=== PATIENT | male | born 1965 | race Caucasian/White ===

== ENCOUNTER 2021-03-16 17:29 | Emergency (ER) | payer OTHER ==
[~2021-03-16] VITALS: Ht 172.7 cm; Wt 71.7 kg
[~2021-03-16 17:29] MED LIST: ACETAMINOPHEN-1 EAC1 PO; BACTRIM DS TAB1 EACH PO; CEPHALEXIN 500500 M3 PO; ERYTHROMYCIN E3.5 G3 OPHTHALMIC; HYDROCODONE-AP1 EAC6 PO; NOHOMEMEDICATIONS; NORCO 5-325 TA1 EACH PO; PERCOCET 5-3251 EACH PO; TOBRAMYCIN SULFA5 M1 OP; TOBRAMYCIN SULFA5 ML OPHTHALMIC
[2021-03-16] MEDS ORDERED: DOXYCYCLINE 10100 MG PO (17:46)
[2021-03-16] MEDS ORDERED: PERCOCET PO (17:46)
[2021-03-16 17:55] VITALS: BP 129/60
== END 2021-03-16 18:05 | disposition home or self-care (01) ==
LOC: M.ERS 17:29
DX: N45.1 Epididymitis (principal); Z98.890 Other specified postprocedural states; Z88.5 Allergy status to narcotic agent

== ENCOUNTER 2021-04-05 01:43 | Emergency (ER) | payer OTHER ==
[~2021-04-05] VITALS: Ht 172.7 cm; Wt 71.7 kg
[~2021-04-05 01:43] MED LIST changes: +DOXYCYCLINE 10100 MG PO; +PERCOCET PO
[2021-04-05 02:27] LABS: URINE BILIRUBIN NEGATIVE (Negative); URINE BLOOD NEGATIVE (Negative); URINE CLARITY CLEAR; URINE COLOR YELLOW; URINE GLUCOSE-RANDOM NEGATIVE (Negative); URINE KETONES NEGATIVE (Negative); URINE LEUKOCYTES-REFLEX NEGATIVE (Negative); URINE NITRITE-REFLEX NEGATIVE (Negative); URINE PROTEIN NEGATIVE (Negative); URINE SPECIFIC GRAVITY >= 1.030 (1.005-1.030); URINE UROBILINOGEN 0.2 E.U./dl (0.2-1.0)
[2021-04-05 02:35] LABS: AMP/METHAMP POSITIVE (Negative); BARBITURATES Negative (Negative); BENZODIAZEPINES Negative (Negative); COCAINE Negative (Negative); METHADONE Negative (Negative); OPIATES Negative (Negative); PCP Negative (Negative); THC Negative (Negative)
[2021-04-05 02:46] LABS: HEMATOCRIT 40.1 % (42.0-52.0); HEMOGLOBIN 13.4 gm/dL (14.0-18.0); MCH 28.7 pg (26.0-34.0); MCHC 33.4 g/dL (28.0-37.0); MCV 85.8 fL (80.0-100.0); MPV 6.8 fl. (7.2-11.1); RBC 4.67 mil/uL (4.50-6.00); RDW-CV 15.7 % (10.5-14.5); WBC 6.3 thou/uL (4.0-11.0)
[2021-04-05 02:49] LABS: CALCIUM 8.8 mg/dL (8.5-10.1); CREATININE 0.9 mg/dL (0.6-1.3)
[2021-04-05] MEDS ORDERED: LEVAQUIN 500 M500 MG PO (06:48)
[2021-04-05] MEDS ORDERED: ACETAMINOPHEN-1 EAC2 PO (06:48)
[2021-04-05 07:59] VITALS: BP 112/76
== END 2021-04-05 08:01 | disposition home or self-care (01) ==
LOC: M.ERS 01:43
PROVIDERS: Personal Emergency Response Attendant
DX: N45.1 Epididymitis (principal); Z88.6 Allergy status to analgesic agent